=== PATIENT | female | born 1985 | race Caucasian/White ===

== ENCOUNTER 2017-12-05 12:25 | Inpatient (IN) | payer OTHER ==
[2017-12-05 14:10] VITALS: BMI 32.2
[2017-12-05] MEDS ORDERED: ELECTROLYTE-148 SOLN 1,000 ML IV SCH (14:30)
[2017-12-05 15:10] LABS: URINE APPEARANCE SLCLOUDY; URINE BILIRUBIN NEGATIVE (<2.0 mg/dL); URINE COLOR LTYELLOW; URINE GLUCOSE (UA) NEGATIVE (NEGATIVE); URINE KETONE NEGATIVE (NEGATIVE); URINE LEUK ESTERASE NEGATIVE (NEGATIVE); URINE NITRITE NEGATIVE (NEGATIVE); URINE PROTEIN NEGATIVE (NEGATIVE); URINE UROBILINOGEN NEGATIVE mg/dL (0.2-1.0)
[2017-12-05 15:27] LABS: BASO % 0.2 % (0-2.0); EOS % 1.3 % (0-4.5); HEMATOCRIT 36.2 % (32.4-45.2); HEMOGLOBIN 12.4 GM/dL (10.7-15.3); LYMPH % 14.6 % (8-40); MCH 29.9 pg (25.7-33.7); MCHC 34.3 g/dl (32.0-36.0); MEAN CELL VOLUME 87.1 fl (80-96); MEAN PLT VOLUME 9.7 fl (7.5-11.1); MONO % 6.3 % (3.8-10.2); NEUT % 77.6 % (42.8-82.8); PLATELET COUNT 207 K/MM3 (134-434); RBC 4.16 M/mm3 (3.60-5.2); RDW 14.7 % (11.6-15.6); RETICULOCYTES 1.67 % (0.5-1.5); WHITE BLOOD COUNT 9.6 K/mm3 (4.0-10.0)
[2017-12-05 15:42] LABS: INR 0.85 (0.83-1.09)
[2017-12-05 15:45] LABS: ACTIVATED PTT 26.5 SECONDS (25.2-36.5)
[2017-12-05 16:00] LABS: ANION GAP 10 MMOL/L (8-16); BLOOD UREA NITROGEN 11 mg/dL (7-18); CALCIUM 8.7 mg/dL (8.5-10.1); CHLORIDE 108 mmol/L (98-107); CO2 22 mmol/L (21-32); CREATININE 0.5 mg/dL (0.55-1.3); GAMMA GLUTAMYL TRANSPEPTIDASE 5 U/L (5-85); GLUCOSE,RANDOM 103 mg/dL (74-106); POTASSIUM 3.9 mmol/L (3.5-5.1); SGOT/AST 19 U/L (15-37); SGPT/ALT 20 U/L (13-61); SODIUM 139 mmol/L (136-145); URIC ACID 3.5 mg/dL (2.6-7.2)
[2017-12-05] MEDS ORDERED: CITRIC ACID/SODIUM CITRATE 30 ML UNIT-DOSE CUP PO ONE (16:12)
--- NOTE | 2017-12-05 16:23 | HP ---
Past Medical History - Primary Care Physician PCP:: Jay Jay Maldonado - Admission Chief Complaint: 37 weeks, chronic uncontrolled HTN, 3 previous c/s, sterlization History of Present Illness: 32 yo f 1 1 3 , with hx of CHTN on labetalol and ASA , c/o headache, , bp 160/100.162/104,160/103 , protein negative, 3 previous c/s , admitted for repeat c/sand BTL, have had rt ectopic and RT salpingectomy. risks of repeat c/s has discussed with patient History Source: Patient Limitations to Obtaining History: No Limitations - Past Medical History QA INTERNSHIP: Yes: Other (no headache) Cardiovascular: Yes: HTN (denies when non , no meds before . htn only during pregn as per pt) Pulmonary: Yes: Other ( No SOB) Gastrointestinal: Yes: Other (no epigastric pain or vomitting) Reproductive: Yes: Ectopic ...: 5 ...Para: 3 ...Term: 2 ...: 1 ...Spon : 1 ...Induced : 0 ...Multiple Gestation: 0 ...LMP: 03/21/17 ... Weeks Gestation by Dates: 37.0 ...EDC by Dates: 12/26/17 ...EDC by Sono: 12/26/17 - Past Surgical History Past Surgical History: Yes: Appendectomy, Hx Myomectomy: No Hx Transabdominal Cerclage: No - Smoking History Smoking history: Never smoked Have you smoked in the past 12 months: No - Alcohol/Substance Use Hx Alcohol Use: No History of Substance Use: reports: None - Social History Usual Living Arrangement: Yes: Alone, Assisted Living History of Recent Travel: No Home Medications - Allergies Allergies/Adverse Reactions: Allergies Allergy/AdvReac Type Severity Reaction Status Date / Time No Known Allergies Allergy Verified 12/05/17 12:59 - Home Medications Home Medications: Ambulatory Orders Aspirin [Adult Aspirin] 81 mg PO DAILY 12/05/17 Ferrous Sulfate 325 mg PO DAILY 12/05/17 Labetalol HCl [Normodyne -] 200 mg PO BID 12/05/17 Pnv No.95/Ferrous Fum/Folic AC [ Vitamin Tablet] 1 each PO DAILY Review of Systems - Review of Systems Eyes: reports: No Symptoms HENT: reports: No Symptoms Neck: reports: No Symptoms Cardiovascular: reports: No Symptoms Respiratory: reports: No Symptoms Gastrointestinal: reports: No Symptoms Genitourinary: reports: No Symptoms Breasts: reports: No Symptoms Reported Musculoskeletal: reports: No Symptoms Integumentary: reports: No Symptoms Neurological: reports: Headache Endocrine: reports: No Symptoms Hematology/Lymphatic: reports: No Symptoms Psychiatric: reports: No Symptoms Physical Exam - Maternity Vital Signs: Vital Signs Temperature 98.3 F 12/05/17 14:00 Pulse Rate 80 12/05/17 15:30 Respiratory Rate 18 12/05/17 15:30 Blood Pressure 165/92 12/05/17 15:30 O2 Sat by Pulse Oximetry (%) Constitutional: Yes: Well Nourished, No Distress, Calm Eyes: Yes: WNL, Conjunctiva Clear, EOM Intact HENT: Yes: WNL, Atraumatic, Normocephalic Neck: Yes: WNL, Supple, Trachea Midline Cardiovascular: Yes: WNL, Regular Rate and Rhythm Breast(s): Yes: WNL - Abdominal Exam/OB Fundal Height: 38 Number of Fetuses: Single Presentation: Vertex Contractions: No Regularity: Irritability Intensity: Unaware Monitor Mode: External Heart Rate Location: [facility] Category: I Accelerations: Uniform Decelerations: None - Vaginal Exam/OB Vaginal Bleediing: No Speculum Exam: No Dilatation (cm): closed Effacement (%): 0 Amniotic Membrane Status: Intact Presentation: Vertex/Position Station: -3 - Physical Exam Musculoskeletal: Yes: WNL Extremities: Yes: WNL Edema: LLE: 1+, RLE: 1+ Integumentary: Yes: WNL Deep Tendon Reflex Grade: Normal +2 ...Motor Strength: WNL Psychiatric: Yes: WNL - Labs Lab Results: CBC, BMP 12/05/17 14:45 12/05/17 14:45 Hemorrhage Risk Assessment - Risk Factors Medium Risk Factors: Yes: Prior , uterine surgery,or multiple laparotomies Risk Score: 3 Risk Level: High Risk Problem List - Problems (1) with 37 weeks completed gestation Code(s): Z3A.37 - 37 WEEKS GESTATION OF (2) Previous section complicating Code(s): O34.219 - MATERNAL CARE FOR UNSP TYPE SCAR FROM PREVIOUS DEL (3) Chronic hypertension affecting Code(s): O10.919 - UNSP PRE-EXISTING HTN COMP , UNSP TRIMESTER (4) Sterilization Code(s): Z30.2 - ENCOUNTER FOR STERILIZATION Assessment/Plan repeat c/s, btl, monitor Bp , tx with labetalol
[2017-12-05] MEDS ORDERED: morphine SULFATE/Preservative Free 0.5 MG/ML (1cc Syringe) ONE (16:47)
[2017-12-05] MEDS ORDERED: ceFAZolin SODIUM 1 GM VIAL ONE (17:04)
[2017-12-05] MEDS ORDERED: OXYTOCIN 20 UNITS in 0.9% NS 20 UNIT/1,000 ML INFUS.BAG IV ONE ×2 (17:11→19:44)
[2017-12-05] MEDS ORDERED: OXYTOCIN 10 UNITS/ML VIAL ONE (17:12)
[2017-12-05] MEDS ORDERED: BENZOCAINE 20% 57 GM BOTTLE TP PRN (17:57)
[2017-12-05] MEDS ORDERED: BENZOCAINE 28 GM HEMORRHOIDAL OINTMENT PR PRN (17:57)
[2017-12-05] MEDS ORDERED: WITCH HAZEL 50% (TUCKS) 40 PAD/JAR PAD TP PRN (17:57)
[2017-12-05] MEDS ORDERED: METHYLERGONOVINE MALEATE 0.2 MG/1 ML AMP IM PRN (17:57)
[2017-12-05] MEDS ORDERED: diphenhydrAMINE HCL 25 MG CAPSULE (FP) PO PRN (17:57)
[2017-12-05] MEDS ORDERED: IBUPROFEN 600 MG TABLET (FP) PO PRN (17:57)
[2017-12-05] MEDS ORDERED: IBUPROFEN 800 MG/8 ML IJ IVPB PRN (17:57)
[2017-12-05] MEDS ORDERED: oxyCODONE HCL 5 MG TABLET PO PRN (17:57)
[2017-12-05] MEDS ORDERED: ACETAMINOPHEN 1000 MG/100 ML VIAL (NON FORMULARY) IVPB PRN (18:00)
[2017-12-05] MEDS ORDERED: DEXTROSE 5%-LACTATED RINGERS 1,000 ML IV SCH (18:00)
[2017-12-05] MEDS ORDERED: OXYTOCIN 20 UNITS in 0.9% NS 20 UNIT/1,000 ML INFUS.BAG IV SCH (18:00)
[2017-12-05] MEDS ORDERED: ONDANSETRON 4 MG/2 ML VIAL IVPUSH PRN (18:19)
[2017-12-05] MEDS ORDERED: LABETALOL HCL 200 MG TABLET (FP) ONE (18:39)
[2017-12-05] MEDS: LABETALOL HCL 200 MG TABLET (FP) PO PRN (18:40)
[2017-12-06] MEDS ORDERED: DEXTROSE 5%-WATER - 50 ML IVPB ONE ×2 (00:42→08:25)
[2017-12-06] MEDS ORDERED: ceFAZolin SODIUM 1 GM VIAL ONE ×2 (00:42→08:26)
[2017-12-06] MEDS: CEFAZOLIN 1 GM in DEXTROSE 5%-WATER - 50 ML IVPB SCH ×2 (00:50→08:32)
--- NOTE | 2017-12-06 08:08 | OP ---
DATE OF OPERATION: 12/05/2017 PREOPERATIVE DIAGNOSIS: 37 weeks, chronic hypertension uncontrolled, 3 previous sections, request of section and tubal ligation. POSTOPERATIVE DIAGNOSIS: 37 weeks, chronic hypertension uncontrolled, 3 previous sections, request of section and tubal ligation. PROCEDURE: Repeat low segment transverse section, bilateral tubal ligation. SURGEON: Jay Jay Maldonado MD SENIOR QUALITY ASSURANCE SPECIALIST: ABNER Shanks ANESTHESIA: Spinal. ANESTHESIOLOGIST: Roberto Levin MD ESTIMATED BLOOD LOSS: 700 mL. DESCRIPTION OF PROCEDURE: The patient was taken to the operating room under adequate spinal anesthesia. Abdomen and perineum were prepped and draped. Pfannenstiel abdominal skin incision was made over the previous incision. Abdominal wall was cut layer by layer until the peritoneum was exposed and incised. Upon entering the abdominal cavity, there were multiple pelvic omental adhesions. Uterus was adherent to the anterior abdominal wall. These adhesions were lysed, and lower uterine segment was identified. Bladder flap was developed and pushed down. A low transverse uterine incision was made. Incision extended laterally. Amniotic sac was entered. Clear fluid. Head delivered from right occipital position. Nasopharynx was suctioned, and live baby was delivered without any difficulty. Placenta was delivered manually. Uterine cavity was cleaned of all remaining tissue. Uterine incision was closed in 2 layers, the first layer with 0 Biosyn continuous suture, the second layer with 0 Biosyn imbricating the first layer. Then right tube had partial salpingectomy. Fimbriated end was removed. Then the clamp was tied with 0 Biosyn tie. Then the left tube was grasped with Rose clamp. The left tube was doubly tied with 2-0 plain, and a portion of tube was removed and then the was cauterized. No active bleeding was seen. All the lap, pad, sponge, and instruments counts were correct. Peritoneum because of adhesions was not able to be closed. The muscles were brought together with a suture of 0 Biosyn. Fascia was closed with 0 Biosyn continuous suture, subcutaneous fat interrupted suture of 0 Biosyn, and the skin was closed with trent. The patient tolerated the procedure well and left the OR in good condition. Bimal [id number]
[2017-12-06 08:10] LABS: BASO % 0.3 % (0-2.0); EOS % 0.7 % (0-4.5); HEMATOCRIT 33.8 % (32.4-45.2); HEMOGLOBIN 11.4 GM/dL (10.7-15.3); LYMPH % 15.1 % (8-40); MCH 29.6 pg (25.7-33.7); MCHC 33.7 g/dl (32.0-36.0); MEAN CELL VOLUME 87.9 fl (80-96); MEAN PLT VOLUME 9.4 fl (7.5-11.1); NEUT % 76.9 % (42.8-82.8); PLATELET COUNT 157 K/MM3 (134-434); RBC 3.84 M/mm3 (3.60-5.2); WHITE BLOOD COUNT 10.7 K/mm3 (4.0-10.0)
[2017-12-06] MEDS: ENOXAPARIN NA (PORCINE) 40 MG/0.4 ML DISP.SYRIN SQ SCH (09:08)
[2017-12-06] MEDS: LABETALOL HCL 200 MG TABLET (FP) PO PRN (14:27)
--- NOTE | 2017-12-06 14:33 | PN ---
Progress Note, Physician Chief Complaint: s/p c section post op day one. History of Present Illness: under spinal anesthesia with duramorph for post op pain control - Current Medication List Current Medications: Active Medications Acetaminophen (Tylenol -) 650 mg PO Q4H PRN PRN Reason: PAIN LEVEL 6-10 Acetaminophen (Ofirmev Injection -) 1,000 mg IVPB Q6H PRN PRN Reason: PAIN LEVEL 6-10 Last Admin: 12/06/17 01:25 Dose: 1,000 mg Benzocaine (Americaine 20% [place] -) 1 spray TP PRN PRN PRN Reason: Pain - Topical Benzocaine (Americaine Ointment -) 1 applic MD PRN PRN PRN Reason: Pain - Topical Bisacodyl (Dulcolax Suppository -) 10 mg MD PRN PRN PRN Reason: CONSTIPATION Diphenhydramine HCl (Benadryl -) 25 mg PO Q8H PRN PRN Reason: FOR ITCHING Diphenhydramine HCl (Benadryl Injection -) 25 mg IVPUSH Q4H PRN PRN Reason: Pruritis Last Admin: 12/06/17 04:40 Dose: 25 mg Diphtheria/Tetanus/Acell Pertussis (Boostrix -) 0.5 ml IM .ONCE ONE Stop: 12/07/17 10:01 Enoxaparin Sodium (Lovenox -) 40 mg SQ DAILY [facility] Last Admin: 12/06/17 09:08 Dose: 40 mg Parenteral Electrolytes (Plasma-Lyte 148 -) 1,000 mls @ 125 mls/hr IV ASDIR [facility] Last Admin: 12/05/17 13:30 Dose: 125 mls/hr Dextrose/Lactated Ringer's (D5-Lr -) 1,000 mls @ 125 mls/hr IV ASDIR [facility] Oxytocin/Sodium Chloride (Normal Saline+20 Units Oxytocin -) 20 unit in 1,000 mls @ 125 mls/hr IV ASDIR [facility] Last Admin: 12/05/17 19:39 Dose: 125 mls/hr Influenza Virus Vaccine Quadrival (Flulaval Quad [id number]) 60 mcg IM .ONCE ONE Stop: 12/07/17 10:01 Labetalol HCl (Normodyne -) 200 mg PO Q6H PRN PRN Reason: HYPERTENSION Last Admin: 12/06/17 14:27 Dose: 200 mg Methylergonovine Maleate (Methergine Injection -) 0.2 mg IM Q4H PRN PRN Reason: EXCESSIVE BLEEDING Ondansetron HCl (Zofran Injection) 4 mg IVPUSH Q4H PRN PRN Reason: NAUSEA Oxycodone HCl (Roxicodone -) 5 mg PO Q4H PRN PRN Reason: PAIN LEVEL 4 - 6 Oxycodone HCl (Roxicodone -) 10 mg PO Q4H PRN PRN Reason: PAIN LEVEL 7 - 10 Senna/Docusate Sodium (Pericolace -) 2 tablet PO HS PRN PRN Reason: CONSTIPATION Simethicone (Mylicon -) 80 mg PO Q4H PRN PRN Reason: GAS Witch Karissa/Glycerin (Tucks Pads -) 1 pad TP PRN PRN PRN Reason: Pain - Topical - Objective Vital Signs: Vital Signs Temperature 98.3 F 12/06/17 14:15 Pulse Rate 88 12/06/17 14:15 Respiratory Rate 20 12/06/17 14:15 Blood Pressure 134/94 12/06/17 14:15 O2 Sat by Pulse Oximetry (%) 100 12/05/17 21:00 Constitutional: Yes: Well Nourished Cardiovascular: Yes: WNL Respiratory: Yes: WNL Gastrointestinal: Yes: WNL Labs: CBC, BMP 12/06/17 07:00 12/05/17 14:45 INR, PTT INR 0.85 (0.83-1.09) 12/05/17 14:45 Assessment/Plan No adverse effect of anesthetic, pain controlled, no nausea or vomiting, dept of anesthesia will sign off care at this time.
--- NOTE | 2017-12-06 16:53 | PN ---
Progress Note (short form) - Note Progress Note: pod 2 s/p repeat c/s, chronic HTN, no headache Last Vital Signs Temp Pulse Resp BP Pulse Ox 98.3 F 88 20 134/94 100 12/06/17 14:15 12/06/17 14:15 12/06/17 14:15 12/06/17 14:15 12/05/17 21:00 CBC, BMP 12/06/17 07:00 12/05/17 14:45 abdomen soft, no distension , no cva incision dry, clean no calf tenderness no edema impression chronic HTN, on labetalol , bp fairly well controlled plan ambulate, cbc Problem List - Problems (1) with 37 weeks completed gestation Code(s): Z3A.37 - 37 WEEKS GESTATION OF (2) Previous section complicating Code(s): O34.219 - MATERNAL CARE FOR UNSP TYPE SCAR FROM PREVIOUS DEL (3) Chronic hypertension affecting Code(s): O10.919 - UNSP PRE-EXISTING HTN COMP , UNSP TRIMESTER (4) Sterilization Code(s): Z30.2 - ENCOUNTER FOR STERILIZATION
[2017-12-06] MEDS ORDERED: BISACODYL 10 MG SUPP.RECT PR PRN (17:57)
[2017-12-06] MEDS: SIMETHICONE 80 MG TAB.CHEW (FP) PO PRN (21:30)
[2017-12-06] MEDS: ACETAMINOPHEN 325 MG TABLET (FP) PO PRN (21:30)
[2017-12-06] MEDS: oxyCODONE HCL 5 MG TABLET PO PRN (21:32)
[2017-12-07] MEDS: LABETALOL HCL 200 MG TABLET (FP) PO PRN ×3 (01:42→21:01)
[2017-12-07] MEDS: ACETAMINOPHEN 325 MG TABLET (FP) PO PRN ×3 (06:22→21:01)
[2017-12-07] MEDS: SIMETHICONE 80 MG TAB.CHEW (FP) PO PRN ×3 (06:22→21:01)
[2017-12-07] MEDS: oxyCODONE HCL 5 MG TABLET PO PRN ×3 (06:23→21:01)
[2017-12-07] MEDS: ENOXAPARIN NA (PORCINE) 40 MG/0.4 ML DISP.SYRIN SQ SCH (09:09)
[2017-12-07] MEDS ORDERED: FLU VACCINE QUAD 60 MCG/0.5 ML (MDV 18-19) IM ONE (11:15)
[2017-12-07] MEDS ORDERED: DIPHTH,PERTUSS(ACELL),TET 0.5 ML DISP.SYRIN IM ONE (11:15)
[2017-12-07] MEDS ORDERED: SENNOSIDES/DOCUSATE COMBO (SENNA PLUS) TABLET (UD) PO PRN (22:00)
[2017-12-08] MEDS: ACETAMINOPHEN 325 MG TABLET (FP) PO PRN (03:43)
[2017-12-08 08:06] VITALS: BP 142/79; PULSE 86; TEMP 98.1
--- NOTE | 2017-12-08 08:08 | PN ---
Progress Note (short form) - Note Progress Note: pod 3 doing well, no c/o , no headache, no blurred vision, passing gas CBC, BMP 12/06/17 07:00 12/05/17 14:45 Last Vital Signs Temp Pulse Resp BP Pulse Ox 98.6 F 88 18 139/87 100 12/08/17 02:00 12/08/17 02:00 12/08/17 02:00 12/08/17 02:00 12/05/17 21:00 abdomen soft, no distension, no cva ,BS present incision dry, clean , trent intact no excess vaginal bleeding no calf tenderness plan cbc today cont. monitor BP Problem List - Problems (1) with 37 weeks completed gestation Code(s): Z3A.37 - 37 WEEKS GESTATION OF (2) Previous section complicating Code(s): O34.219 - MATERNAL CARE FOR UNSP TYPE SCAR FROM PREVIOUS DEL (3) Chronic hypertension affecting Code(s): O10.919 - UNSP PRE-EXISTING HTN COMP , UNSP TRIMESTER (4) Sterilization Code(s): Z30.2 - ENCOUNTER FOR STERILIZATION
[2017-12-08 08:30] LABS: BASO % 0.3 % (0-2.0); HEMATOCRIT 30.5 % (32.4-45.2); HEMOGLOBIN 10.2 GM/dL (10.7-15.3); LYMPH % 13.4 % (8-40); MCH 29.7 pg (25.7-33.7); MCHC 33.6 g/dl (32.0-36.0); MEAN CELL VOLUME 88.3 fl (80-96); MEAN PLT VOLUME 8.7 fl (7.5-11.1); MONO % 7.6 % (3.8-10.2); NEUT % 76.7 % (42.8-82.8); PLATELET COUNT 173 K/MM3 (134-434); RBC 3.45 M/mm3 (3.60-5.2); RDW 15.3 % (11.6-15.6); WHITE BLOOD COUNT 9.1 K/mm3 (4.0-10.0)
--- NOTE | 2017-12-08 08:53 | DS ---
Physical Exam-INCIDENT HANDLER Vital Signs: Vital Signs Temperature 98.1 F 12/08/17 08:00 Pulse Rate 86 12/08/17 08:00 Respiratory Rate 18 12/08/17 08:00 Blood Pressure 142/79 12/08/17 08:00 O2 Sat by Pulse Oximetry (%) 100 12/05/17 21:00 Constitutional: Yes: Well Nourished, No Distress, Calm Eyes: Yes: WNL, Conjunctiva Clear, EOM Intact HENT: Yes: WNL, Atraumatic, Normocephalic Neck: Yes: WNL, Supple, Trachea Midline Cardiovascular: Yes: WNL, Regular Rate and Rhythm Respiratory: Yes: WNL, Regular, CTA Bilaterally Gastrointestinal: Yes: WNL ...Rectal Exam: Yes: WNL Renal/: Yes: WNL ....Post : Yes: Uterus firm, Uterus non-tender, Slight lochia rubra Breast(s): Yes: WNL Musculoskeletal: Yes: WNL Extremities: Yes: WNL Edema: No Integumentary: Yes: WNL Wound/Incision: Yes: Clean/Dry, Well Approximated, [place] Intact Neurological: Yes: WNL, Alert, Oriented ...Motor Strength: WNL Psychiatric: Yes: WNL, Alert, Oriented Labs: CBC, BMP 12/08/17 08:00 12/05/17 14:45 Delivery - Delivery Section: Repeat, Low Flap Transverse (no complication) Type of Anesthesia: Spinal Episiotomy/Laceration: None EBL (cc): 700 Delivery, Single - Stages of Labor Date of Delivery: 12/05/17 Time of Delivery: 17:14 Time Placenta Delivered: 17:15 Placenta: Yes: Expressed - Condition of Infant Financial Services Intern/Web Architect Present: No Infant Gender: Male Weight: 6 lb 8 oz Position: Right, OT Total Hours ROM (Hrs/Mins): 2min - 1 Minute Total Score: 8 5 Minutes Total Score: 9 - [place] Feeding Plan Initial Plan: Elected not to breastfeed exclusively throughout hospitalization Discharge Summary Reason For Visit: REPEAT Current Active Problems Chronic hypertension affecting (Acute) with 37 weeks completed gestation (Acute) Previous section complicating (Acute) Sterilization (Acute) Procedures: Principal: repeat LST c/s Other Procedures: BTL - Instructions Diet, Activity, Other Instructions: regular diet, follow up [facility] 3 days for trent removal , follow up PCP for HTN this week . if heavy vaginal bleeding, headache, fever call MD Referrals: Jay Jay Maldonado MD [Staff Physician] - - Home Medications Comprehensive Discharge Medication List: Ambulatory Orders Aspirin [Adult Aspirin] 81 mg PO DAILY 12/05/17 Ferrous Sulfate 325 mg PO DAILY 12/05/17 Labetalol HCl [Normodyne -] 200 mg PO BID 12/05/17 Pnv No.95/Ferrous Fum/Folic AC [ Vitamin Tablet] 1 each PO DAILY Acetaminophen [Tylenol] 650 mg PO QID PRN #60 tablet 12/08/17 Ibuprofen [Motrin Ib] 400 mg PO BID PRN #30 tablet 12/08/17 Labetalol HCl [Normodyne -] 200 mg PO BID #60 tablet 12/08/17
[2017-12-08] MEDS: ENOXAPARIN NA (PORCINE) 40 MG/0.4 ML DISP.SYRIN SQ SCH (09:09)
[2017-12-08] MEDS: LABETALOL HCL 200 MG TABLET (FP) PO PRN (10:01)
--- NOTE | 2017-12-12 16:42 | PATH ---
Surgical Pathology Report Patient Name: ISIDRO GARCIA [facility]. Rec. #: [id number] /Age/Gender: 1985 (Age: 32) / F Account: [id number] Location: [facility] OBS/RING STRIKER Taken: 12/05/2017 Received: 12/08/2017 Reported: 12/12/2017 Physicians: Jay Jay Maldonado M.D. Specimen(s) Received A: PLACENTA B: RIGHT PORTION FALLOPIAN TUBE C: LEFT PORTION FALLOPIAN TUBE Clinical History , 37 weeks, PIH Final Diagnosis A. PLACENTA: THIRD TRIMESTER PLACENTA. TRIVASCULAR CORD. MEMBRANES WITH NO DIAGNOSTIC ABNORMALITIES. B. RIGHT PORTION OF FALLOPIAN TUBE: COMPLETE CROSS SECTION OF THE FALLOPIAN TUBE IDENTIFIED. C. LEFT PORTION OF FALLOPIAN TUBE: COMPLETE CROSS SECTION OF THE FALLOPIAN TUBE IDENTIFIED. Electronically Signed Ranjana Randolph M.D. Gross Description A. The specimen is received fresh labeled placenta and is a 414 gram, 15.5 x 13.0 x 3.0 cm. placenta with attached membranes and umbilical cord. The attached membranes are chow, translucent with focal opacities and insert marginally. The umbilical cord measures 30 cm. in length and averages 1.4 cm. in diameter. The cord inserts eccentrically, 4.5 cm. to the nearest margin. No true knots or strictures are identified. Cut surface of the umbilical cord reveals 3 vessels. The surface is estrada-blue with minimal fibrin deposition and appropriate caliber vessels. The maternal surface is red-brown with focal defects. Sectioning reveals red-brown, spongy parenchyma. No lesions are identified. Neck Band Maker sections are submitted in three cassettes as follows: 1- membrane rolls and umbilical cord; 2-3- full thickness sections of placenta. B. Received in formalin labeled "right portion of fallopian tube," is a 2.8 cm in length fimbriated portion of fallopian tube. The outer surface is chow-flowers and smooth. Sectioning reveals an unremarkable lumen. Neck Band Maker sections are submitted in 2 cassettes as follows: 1-fimbria; 2-cross sections of fallopian tube. C. Received in formalin labeled "left portion of fallopian tube," is a 0.6 cm in length portion of fallopian tube. No fimbria are present. The outer surface is chow-flowers and smooth. Sectioning reveals an unremarkable lumen. The specimen is bisected and entirely submitted in one cassette. 12/11/2017 saudi12/11/2017
== END 2017-12-08 12:40 | disposition home or self-care (01) | DRG 540 ==
LOC: JDEL 12:25 → JLDR 13:00 → J3W 20:00
PROVIDERS: ADMIT Obstetrics & Gynecology; ATTEND Obstetrics & Gynecology
PROC: 10D00Z1 Extraction of Products of Conception, Low, Open Approach (ICD-10-PCS; principal; 2017-12-05)
PROC: 0UL70ZZ Occlusion of Bilateral Fallopian Tubes, Open Approach (ICD-10-PCS; 2017-12-05)
DX: O34.211 Maternal care for low transverse scar from previous cesarean delivery (principal); O16.4 Unspecified maternal hypertension, complicating childbirth; Z3A.37 37 weeks gestation of pregnancy; Z37.0 Single live birth
CPT/HCPCS: 36415; 80048; 81003; 82977; 83010; 84450; 84460; 84550; 85025; 85044; 85610; 85730; 86593; 86850; 86900; 86901; 88302-TC; 88307-TC; 90686; 90715; G0008; J0131

== ENCOUNTER 2017-12-10 11:48 | Emergency (ER) | payer OTHER ==
[2017-12-10 12:03] VITALS: TEMP 98.5; BMI 34.2
[2017-12-10] MEDS ORDERED: LABETALOL HCL 5 MG/1 ML (200MG/40ML VIAL) IVPB ONE (12:45)
[2017-12-10] MEDS: LABETALOL HCL 5 MG/1 ML (100MG/20 ML VIAL) IVPUSH ONE ×2 (12:45→12:56)
[2017-12-10] MEDS ORDERED: ACETAMINOPHEN 1000 MG/100 ML VIAL (NON FORMULARY) IVPB ONE (12:49)
--- NOTE | 2017-12-10 12:50 | PDOC ---
History of Present Illness - General History Source: Patient Exam Limitations: No Limitations - History of Present Illness Initial Comments: 12/10/17 15:46 Patient is a 32 year old female with a significant past medical history of HTN, who presents to the ED with complaints of elevated blood pressure that began this morning. Patient reports giving to her child x5 days ago via section and went to [address] [place] [id number] to have her trent removed. As per staff, patient's blood pressure was found to be elevated to 200 s prompting her to be sent to the ED for further evaluation. Patient reports experiencing slight posterior head pain that she says began earlier today as well as minor vaginal spotting. She reports taking her blood pressure medication this morning before going to have her trent removed. Denies chest pain, Sob. Denies nausea, vomiting. Denies contact with sick individuals, out of state travelling. Denies fevers, chills. Denies diarrhea, constipation, Denies dysuria, hematuria. Denies any other symptoms. Allergies: None Social history: Lives with & 2 children. No smoking. No alcohol. No illicit drugs. Surgical history: . PMD: None <Rashaad Jose - Last Filed: 12/10/17 15:46> - General History Source: Patient Exam Limitations: No Limitations <Christa Bhakta - Last Filed: 12/11/17 13:15> - General Chief Complaint: Blood Pressure Problem Stated Complaint: BLOOD PRESSURE PROBLEM Time Seen by Provider: 12/10/17 12:22 Past History <Rashaad Jose - Last Filed: 12/10/17 15:46> - Past Medical History Asthma: No Cancer: No Cardiac Disorders: No COPD: No Diabetes: No HTN: Yes (TAKING MEDICATION) Seizures: No Thyroid Disease: No - Surgical History Abdominal Surgery: Yes Cholecystectomy: Yes (X 4) - Immunization History Immunization Up to Date: Yes - Suicide/Smoking/Psychosocial Hx Smoking History: Never smoked Have you smoked in the past 12 months: No Information on smoking cessation initiated: No Hx Alcohol Use: No Drug/Substance Use Hx: No Substance Use Type: None Hx Substance Use Treatment: No <Christa Bhakta - Last Filed: 12/11/17 13:15> - Past Medical History Allergies/Adverse Reactions: Allergies Allergy/AdvReac Type Severity Reaction Status Date / Time No Known Allergies Allergy Verified 12/10/17 12:03 Home Medications: Ambulatory Orders Aspirin [Adult Aspirin] 81 mg PO DAILY 12/05/17 Labetalol HCl [Normodyne -] 200 mg PO BID 12/05/17 Labetalol HCl 300 mg PO BID #60 tablet 12/10/17 Review of Systems - Review of Systems Able to Perform ROS?: Yes Comments:: 12/10/17 15:46 GENERAL/CONSTITUTIONAL: No: fever, chills, weakness, loss of appetite. HEAD, EYES, EARS, NOSE AND THROAT: +Posterior head pain. No: change in vision, ear pain, discharge, sore throat, throat swelling. CARDIOVASCULAR: No: chest pain, lightheadedness, palpitations, syncope RESPIRATORY: No: cough, shortness of breath, wheezing, hemoptysis, stridor. GASTROINTESTINAL: No: nausea, vomiting, abdominal cramping, diarrhea, rectal bleeding, constipation. GENITOURINARY: No: dysuria, hematuria, frequency, urgency, flank pain. MUSCULOSKELETAL: No: back pain, neck pain, joint pain, muscle swelling or pain SKIN: No: lesions, pallor, rash or easy bruising. NEUROLOGIC: No: headache, vertigo, paresthesias, weakness ENDOCRINE: No: unexplained weight gain or loss HEMATOLOGIC/LYMPHATIC: No: anemia, easy bleeding, swelling nodes <Rashaad Jose - Last Filed: 12/10/17 15:46> *Physical Exam - Vital Signs Last Vital Signs Temp Pulse Resp BP Pulse Ox 98.5 F 81 20 156/98 99 12/10/17 11:59 12/10/17 14:28 12/10/17 14:28 12/10/17 14:28 12/10/17 14:28 - Physical Exam Comments: 12/10/17 15:46 GENERAL: The patient is in no acute distress. HEAD: Normal with no signs of trauma. EYES: PERRLA, EOMI, sclera anicteric, conjunctiva clear. ENT: Ears normal, nares patent, oropharynx clear without exudates. Moist mucous membranes. NECK: Normal range of motion, supple without lymphadenopathy, JVD, or masses. LUNGS: Breath sounds equal, clear to auscultation bilaterally. No wheezes, and no crackles. HEART:Regular rate and rhythm, normal S1 and S2 without murmur, rub or gallop. ABDOMEN: Soft, nontender, normoactive bowel sounds. No guarding, no rebound. EXTREMITIES: Normal range of motion, no edema. No clubbing or cyanosis. No erythema, or tenderness. NEUROLOGICAL: Cranial nerves II through XII grossly intact. Normal speech. No focal neurological deficits. MUSCULOSKELETAL: Back nontender to palpation, no CVA tenderness SKIN: Warm, Dry, normal turgor, no rashes or lesions noted. <Rashaad Jose - Last Filed: 12/10/17 15:46> - Vital Signs Last Vital Signs Temp Pulse Resp BP Pulse Ox 98.5 F 92 H 18 208/118 H 100 12/10/17 11:59 12/10/17 11:59 12/10/17 11:59 12/10/17 11:59 12/10/17 11:59 <Christa Bhakta - Last Filed: 12/11/17 13:15> ED Treatment Course - LABORATORY CBC & Chemistry Diagram: 12/10/17 12:30 12/10/17 12:30 - ADDITIONAL ORDERS Additional order review: Laboratory Results 12/10/17 12/10/17 12/10/17 14:39 12:45 12:30 PT with INR 10.90 INR 0.92 Sodium 141 Potassium 3.9 Chloride 109 H Carbon Dioxide 25 Anion Gap 6 L BUN 12 Creatinine 0.6 Creat Clearance w eGFR > 60 Random Glucose 86 Uric Acid 3.8 Calcium 8.8 Total Bilirubin 0.3 AST 58 H ALT 87 H Alkaline Phosphatase 101 LD Total 472 H Total Protein 6.4 Albumin 2.7 L Urine Color Straw Urine Appearance Clear Urine pH 7.0 Ur Specific [place] 1.010 Urine Protein Negative Urine Glucose (UA) Negative Urine Ketones Negative Urine Blood 3+ H Urine Nitrite Negative Urine Bilirubin Negative Urine Urobilinogen Negative Ur Leukocyte Esterase Trace 12/10/17 12:30 RBC 3.85 MCV 88.3 MCHC 33.2 RDW 15.2 MPV 8.4 Neutrophils % 78.7 Lymphocytes % 11.3 Monocytes % 6.8 Eosinophils % 2.6 Basophils % 0.6 - Medications Given in the ED: ED Medications Discontinued Medications Generic Name Dose Route Start Last Admin Trade Name Freq PRN Reason Stop Dose Admin Acetaminophen 1,000 mg 12/10/17 12:49 12/10/17 14:00 Ofirmev Injection - IVPB 10/10/18 12:50 1,000 mg ONCE ONE Administration Labetalol HCl 20 mg 12/10/17 12:23 12/10/17 12:56 Normodyne Injection - IVPUSH 12/10/17 12:24 Not Given ONCE ONE Labetalol HCl 10 mg 12/10/17 12:52 12/10/17 12:56 Normodyne Injection - IVPUSH 12/10/17 12:53 10 mg ONCE ONE Administration Labetalol HCl 10 mg 12/10/17 13:43 12/10/17 13:58 Normodyne Injection - IVPUSH 12/10/17 13:44 10 mg ONCE ONE Administration <Rashaad Jose - Last Filed: 12/10/17 15:46> - LABORATORY CBC & Chemistry Diagram: 12/10/17 12:30 12/10/17 12:30 - Medications Given in the ED: ED Medications Discontinued Medications Generic Name Dose Route Start Last Admin Trade Name Freq PRN Reason Stop Dose Admin Labetalol HCl 20 mg 12/10/17 12:23 12/10/17 12:45 Normodyne Injection - IVPUSH 12/10/17 12:24 20 mg ONCE ONE Administration <Christa Bhakta - Last Filed: 12/11/17 13:15> Medical Decision Making - Medical Decision Making 12/10/17 12:49 Mrs. Mccray is a 32-year-old female who was referred from clinic for elevated blood pressure. She is 5 days status post . She has a history of associated hypertension, was previously taking labetalol 200 twice a day. Patient has taken this medication this morning. Patient's blood pressure noted to be 180s over 100 in the clinic. At triage systolic blood pressure 200. Patient has a mild occipital headache. She denies visual changes. She denies neck pain, nausea, vomiting. She denies chest pain or abdominal pain. She denies shortness of breath. An order for: Labetalol 20 mg IV. Patient is placed on a youth nutritional monitor. Will also give Tylenol IV for headache. Will consider initiating hydralazine. Will contact OB 12/10/17 16:26 12/10/17 18:18 Laboratory Tests 12/10/17 12/10/17 12:30 12:30 WBC 8.1 Hgb 11.3 Hct 34.0 Plt Count 255 D Sodium 141 Potassium 3.9 Chloride 109 H Carbon Dioxide 25 BUN 12 Creatinine 0.6 Random Glucose 86 AST 58 H ALT 87 H Alkaline Phosphatase 101 LD Total 472 H Total Protein 6.4 Albumin 2.7 L Case reviewed with Dr Rizvi Given no proteinuria, not pre ecclampsia Pt lft bump may be related to ?pain medications Pt BP noted to be elevated prior to discharge Pt given an additional dose of Labetolol 10mg IV and Labetolol 100mg po Pt has no headache, no visual changes, no chest pain, no palpitations Will discharge to home I have repeated this patient's vital signs prior to discharge Repeat BP: 154/98 Pt asked to return to the ER for re evaluation tomorrow morning Pt has an appointment for Friday at 9am Clinical Impression: hypertension (which was associated with ) <Christa Bhakta - Last Filed: 12/11/17 13:15> *DC/Admit/Observation/Transfer - Attestations Scribe Attestion: 12/10/17 15:46 Documentation prepared by Rashaad Jose, acting as biomedical engineering professor for Christa Bhakta MD. <Rashaad Jose - Last Filed: 12/10/17 15:46> - Discharge Dispostion Decision to Admit order: No <Christa Bhakta - Last Filed: 12/11/17 13:15> Diagnosis at time of Disposition: Chronic hypertension affecting - Discharge Dispostion Disposition: HOME Condition at time of disposition: Stable - Prescriptions Prescriptions: Labetalol HCl 300 mg PO BID #60 tablet - Patient Instructions Printed Discharge Instructions: DI for High Blood Pressure Additional Instructions: Ms Mccray Winnie por venir a la brandon de emergencias hoy Jacquelyn laboratorios sugieren que no tiene preeclampsia Por favor contine monitoreando quintana presin arterial en casa Si estn elevados, no dude en volver a la brandon de emergencias para juan daniel nueva evaluacin. Por favor, CAMBIE [place] DOSIFICACIN DE MEDICACIN DE LABETOLOL AHORA BRAYAN LABETOLOL 300 MG EN LA MAANA Y EN LA NOCHE Por favor, mantente lo ms hidratado posible. SI TIENE UN DOLOR DE [place], VISIN DE BLURRY o PUNTOS ANORMALES EN [place] ÁNGEL VISUAL, DEBE VOLVER A LA ER PARA RE EVALUAR Thank you for coming in to the ER today Your labs suggest that you do not have pre-ecclampsia Please continue to monitor your blood pressures at home If they are elevated, please feel free to come back to the ER for re evaluation Please CHANGE YOUR LABETOLOL MEDICATION DOSING YOU WILL NOW TAKE LABETOLOL 300 MG IN THE MORNING AND IN THE EVENING Please stay as hydrated as possible IF YOU HAVE A HEADACHE, BLURRY VISION or ABNORMAL SPOTS IN YOUR VISUAL FIELD YOU MUST COME BACK TO THE ER FOR RE EVALUATION Print Language: [place]
[2017-12-10 12:51] LABS: BASO % 0.6 % (0-2.0); EOS % 2.6 % (0-4.5); HEMOGLOBIN 11.3 GM/dL (10.7-15.3); LYMPH % 11.3 % (8-40); MCH 29.3 pg (25.7-33.7); MCHC 33.2 g/dl (32.0-36.0); MEAN CELL VOLUME 88.3 fl (80-96); MEAN PLT VOLUME 8.4 fl (7.5-11.1); MONO % 6.8 % (3.8-10.2); NEUT % 78.7 % (42.8-82.8); PLATELET COUNT 255 K/MM3 (134-434); RBC 3.85 M/mm3 (3.60-5.2); RDW 15.2 % (11.6-15.6); WHITE BLOOD COUNT 8.1 K/mm3 (4.0-10.0)
[2017-12-10] MEDS ORDERED: LABETALOL HCL 5 MG/1 ML (100MG/20 ML VIAL) IVPUSH ONE ×3 (12:52→17:17)
[2017-12-10 13:38] LABS: ALBUMIN 2.7 g/dl (3.4-5.0); ALK PHOS 101 U/L (45-117); ANION GAP 6 MMOL/L (8-16); BILIRUBIN,TOTAL 0.3 mg/dL (0.2-1); BLOOD UREA NITROGEN 12 mg/dL (7-18); CALCIUM 8.8 mg/dL (8.5-10.1); CHLORIDE 109 mmol/L (98-107); CO2 25 mmol/L (21-32); CREATININE 0.6 mg/dL (0.55-1.3); GLUCOSE,RANDOM 86 mg/dL (74-106); POTASSIUM 3.9 mmol/L (3.5-5.1); SGOT/AST 58 U/L (15-37); SGPT/ALT 87 U/L (13-61); SODIUM 141 mmol/L (136-145); TOT PROT 6.4 g/dl (6.4-8.2)
[2017-12-10] MEDS ORDERED: ACETAMINOPHEN INJECTION 100 ML IVPB ONE (13:59)
[2017-12-10 14:21] LABS: INR 0.92 (0.83-1.09); PROTHROMBIN TIME (PATIENT) 10.9 SEC (9.7-13.0)
[2017-12-10 14:44] LABS: LDH 472 U/L (84-246); URIC ACID 3.8 mg/dL (2.6-7.2)
[2017-12-10 14:55] LABS: URINE APPEARANCE CLEAR; URINE BILIRUBIN NEGATIVE (<2.0 mg/dL); URINE COLOR STRAW; URINE GLUCOSE (UA) NEGATIVE (NEGATIVE); URINE KETONE NEGATIVE (NEGATIVE); URINE LEUK ESTERASE TRACE (NEGATIVE); URINE NITRITE NEGATIVE (NEGATIVE); URINE PROTEIN NEGATIVE (NEGATIVE); URINE UROBILINOGEN NEGATIVE mg/dL (0.2-1.0)
[2017-12-10 17:00] LABS: EPI CELLS RARE /HPF (FEW); URINE MUCUS RARE
[2017-12-10] MEDS ORDERED: LABETALOL HCL 100 MG TABLET (FP) PO ONE (17:17)
[2017-12-10 18:05] VITALS: BP 164/78; PULSE 85
== END 2017-12-10 18:52 | disposition home or self-care (01) ==
LOC: JER 11:48
PROC: 3E033NZ Introduction of Analgesics, Hypnotics, Sedatives into Peripheral Vein, Percutaneous Approach (ICD-10-PCS; principal; 2017-12-10)
PROC: 3E033GC Introduction of Other Therapeutic Substance into Peripheral Vein, Percutaneous Approach (ICD-10-PCS; 2017-12-10)
DX: O16.5 Unspecified maternal hypertension, complicating the puerperium (principal)
CPT/HCPCS: 36415; 80053; 81003; 81015; 83615; 84550; 85025; 85610; 86850; 86900; 86901; 87086; 99282-25; J0131

== ENCOUNTER 2017-12-30 16:51 | Emergency (ER) | payer OTHER ==
[2017-12-30 17:06] VITALS: TEMP 98.5; BMI 28.7
--- NOTE | 2017-12-30 17:06 | PDOC ---
Rapid Medical Evaluation Time Seen by Provider: 12/30/17 17:01 Medical Evaluation: Allergies Allergy/AdvReac Type Severity Reaction Status Date / Time No Known Allergies Allergy Verified 12/30/17 17:01 12/30/17 17:01 Pt presents to the ED for right sided facial droop for one week. S/p C section on 12/05/17. Hx of HTN and preeclampsia Exam: Right sided facial droop, unable to raise eyebrow, close eye completely. BP 221/138 Orders: Labs, IV, CT Pt to proceed to ED for further evaluation Discharge Disposition - Diagnosis Facial droop - Referrals - Patient Instructions - Post Discharge Activity
[2017-12-30 17:26] LABS: BASO % 0.9 % (0-2.0); HEMATOCRIT 43.2 % (32.4-45.2); HEMOGLOBIN 14.6 GM/dL (10.7-15.3); LYMPH % 23.4 % (8-40); MCHC 33.9 g/dl (32.0-36.0); MEAN CELL VOLUME 85.6 fl (80-96); MEAN PLT VOLUME 8.4 fl (7.5-11.1); NEUT % 63.7 % (42.8-82.8); PLATELET COUNT 252 K/MM3 (134-434); RBC 5.05 M/mm3 (3.60-5.2); RDW 14.5 % (11.6-15.6); WHITE BLOOD COUNT 7.2 K/mm3 (4.0-10.0)
[2017-12-30 17:42] LABS: INR 0.96 (0.83-1.09); PROTHROMBIN TIME (PATIENT) 11.3 SEC (9.7-13.0)
[2017-12-30] MEDS ORDERED: SODIUM CHLORIDE 1,000 ML IV STA (17:59)
[2017-12-30] MEDS ORDERED: LABETALOL HCL 5 MG/1 ML (100MG/20 ML VIAL) IVPUSH ONE (17:59)
[2017-12-30] MEDS ORDERED: ACETAMINOPHEN 1000 MG/100 ML VIAL (NON FORMULARY) IVPB ONE (17:59)
[2017-12-30 18:00] LABS: ALBUMIN 4.7 g/dl (3.4-5.0); ALK PHOS 100 U/L (45-117); ANION GAP 10 MMOL/L (8-16); BILIRUBIN,TOTAL 0.4 mg/dL (0.2-1); BLOOD UREA NITROGEN 11 mg/dL (7-18); CHLORIDE 106 mmol/L (98-107); CO2 25 mmol/L (21-32); CREATININE 0.6 mg/dL (0.55-1.3); GLUCOSE,RANDOM 81 mg/dL (74-106); POTASSIUM 3.6 mmol/L (3.5-5.1); SGOT/AST 45 U/L (15-37); SGPT/ALT 123 U/L (13-61); SODIUM 141 mmol/L (136-145); TOT PROT 8.4 g/dl (6.4-8.2)
[2017-12-30] MEDS ORDERED: LABETALOL HCL 5 MG/1 ML (200MG/40ML VIAL) IVPB ONE (18:00)
[2017-12-30] MEDS ORDERED: predniSONE 20 MG TABLET (UD) PO ONE (18:02)
[2017-12-30] MEDS ORDERED: valACYclovir HCL 1000 MG TABLET PO ONE (18:06)
[2017-12-30 18:13] LABS: URINE APPEARANCE CLEAR; URINE BILIRUBIN NEGATIVE (<2.0 mg/dL); URINE COLOR STRAW; URINE GLUCOSE (UA) NEGATIVE (NEGATIVE); URINE KETONE NEGATIVE (NEGATIVE); URINE LEUK ESTERASE 2+ (NEGATIVE); URINE NITRITE NEGATIVE (NEGATIVE); URINE PROTEIN NEGATIVE (NEGATIVE); URINE UROBILINOGEN NEGATIVE mg/dL (0.2-1.0)
[2017-12-30] MEDS ORDERED: valACYclovir HCL 500 MG TABLET (FP) ONE (18:15)
[2017-12-30] MEDS ORDERED: ACETAMINOPHEN INJECTION 100 ML IVPB ONE (18:15)
[2017-12-30] MEDS ORDERED: predniSONE 20 MG TABLET (UD) ONE (18:15)
[2017-12-30 18:18] LABS: EPI CELLS RARE /HPF (FEW); URINE MUCUS RARE
--- NOTE | 2017-12-30 18:21 | PDOC ---
Attending Attestation - HPI HPI: 12/30/17 18:29 Patient is a 32-year-old female with a significant past medical history of recently diagnosed HTN (on labetalol) and preeclampsia, who presents to the ED with complaints of 1 week of right-sided facial droop. Patient initially reports experiencing decreased sensation and pain to the right side of her face. Her symptoms progressively worsened to the point that she was unable to wrinkle the right side of her forehead or close her right eye. She denies experiencing these symptoms in the past. Patient s/p on Tuesday 12/05. BP in the ED noted to be 221/138. She denies any recent travel or recent illnesses. Allergies: NKA Social history: Lives with & 2 children. No smoking. No alcohol. No illicit drugs. Surgical history: . PMD: None <Kelsea Rich - Last Filed: 12/30/17 18:54> - Resident Resident Name: Van Kapoor - ED Attending Attestation I have performed the following: I have examined & evaluated the patient, The case was reviewed & discussed with the resident, I agree w/resident's findings & plan, Exceptions are as noted - Physicial Exam PE: 12/30/17 18:21 NEURO: CN II-XII intact 5/5 strength upper and lower extremities. No pronator drift. Normal speech Right facial droop. Unable to wrinkle forehead. Unable to fully close eyes. - Medical Decision Making 12/30/17 18:04 A portion of this note was documented by scribe services under my direction. I have reviewed the details of the note, within reason, and agree with the documentation with the following case summary and management plan written by me. Patient treated in the ED. Nursing notes are reviewed and incorporated into the medical decision-making. Vital signs reviewed. Peripheral IV access obtained by the nurse, laboratory studies are drawn and sent, reviewed and interpreted by myself. Vital Signs Temp Pulse Resp BP Pulse Ox 98.5 F 89 18 221/138 H 100 12/30/17 17:01 12/30/17 17:01 12/30/17 17:01 12/30/17 17:01 12/30/17 17:01 32-year-old female patient with no medical history presents with right facial droop for one week. Patient started noticing some decreased sensation and pain along the right side the face. Started progressing until she is unable to wrinkle her right forehead and I will close her right eye. Denies any chest pain or short of breath. Denies any other neurological deficits in the upper or lower extremities. Patient stated symptoms persisted and finally came into the ER today. First-time episode. Denies recent illnesses. Denies recent travels. Patient has been recently diagnosed with hypertension after giving approximate 1 month ago. She's been placed on labetalol daily which she's been taken. Patient's CAT scan demonstrates no acute findings. 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 We'll initiate prednisone and valacyclovir. We'll draw Lyme titers. We'll attempt control the blood pressure. However, I do not suspect clinically that the patient had a stroke. We'll try to control the blood pressure and treat Matute's palsy. We'll also need to instruct the patient on how to take the eyes closed when going to sleep and using artificial tears. We'll have her referred to an parole or probation officer and neurologist. If the blood pressures uncontrolled, we'll need to consider admitting the patient to the hospital. 12/30/17 18:55 CBC, BMP 12/30/17 17:22 12/30/17 17:22 CMP Sodium 141 mmol/L (136-145) 12/30/17 17:22 Potassium 3.6 mmol/L (3.5-5.1) 12/30/17 17:22 Chloride 106 mmol/L (98-107) 12/30/17 17:22 Carbon Dioxide 25 mmol/L (21-32) 12/30/17 17:22 Anion Gap 10 MMOL/L (8-16) 12/30/17 17:22 BUN 11 mg/dL (7-18) 12/30/17 17:22 Creatinine 0.6 mg/dL (0.55-1.3) 12/30/17 17:22 Creat Clearance w eGFR > 60 (>60) 12/30/17 17:22 Random Glucose 81 mg/dL (74-106) 12/30/17 17:22 Calcium 9.0 mg/dL (8.5-10.1) 12/30/17 17:22 Total Bilirubin 0.4 mg/dL (0.2-1) 12/30/17 17:22 AST 45 U/L (15-37) H 12/30/17 17:22 ALT 123 U/L (13-61) H 12/30/17 17:22 Alkaline Phosphatase 100 U/L (45-117) 12/30/17 17:22 Creatine Kinase 109 IU/L (26-192) 12/30/17 17:22 Troponin I < 0.02 ng/ml (0.00-0.05) 12/30/17 17:22 Total Protein 8.4 g/dl (6.4-8.2) H 12/30/17 17:22 Albumin 4.7 g/dl (3.4-5.0) 12/30/17 17:22 Repeat BP after labetalol 150s/90s. The patient's head CT is negative. UA with no protein. LFts slightly elevated but pt has no abdominal pain. I feel comfortable with having the patient follow up with a PMD in regards to BP , which I suspect is essential hypertension. However, we will set up an appointment with her to see the IM clinic tomorrow or the following day. I suspect she has matute's palsy and not a stroke. Will give strict return precautions for chest pain, SOB, worsening headache. 12/30/17 19:02 UA with 7WBC, but no dysuria. Will not treat. Will grow urine culture. <Edy Ramirez - Last Filed: 12/30/17 19:03> Heart Score/ECG Review #1 ECG reviewed & interpreted by me at: 17:35 12/30/17 18:24 NSR 76, no std/garcia, TWI III, no std/garcia, QTC 438 msec <Edy Ramirez - Last Filed: 12/30/17 19:03> NIH Stroke Scale - Last Known Well Date/Time & Onset Date Last Known Well: 12/23/17 - Initial Evaluation Level of consciousness: Alert Ask patient the month and their age: Answers both correctly Ask patient to open & close eyes; make fist and let go: Obeys both correctly Best gaze (horizontal eye movement): Normal Visual field testing: No visual field loss Facial paresis (Show teeth/raise eyebrows/close eyes tight): Partial paralysis ( total or near paralysis of lower face) Motor Function: Left Arm: Normal Motor Function: Right Arm: Normal (extends arm 90 (or 45) degrees for 10 seconds without drift Motor Function: Left Leg: Normal (extends leg 30 degrees for 5 seconds without drift) Motor Function: Right Leg: Normal (extends leg 30 degrees for 5 seconds without drift) Limb Ataxia: No ataxia Sensory(Use pinprick test arms,legs,trunk,face/side to side): Mild to moderate decrease in sensation Best language (Describe picture, name items, read sentences): No Aphasia Dysarthria (read several words): Normal articulation Extinction and Inattention: No abnormality - Total Score NIH Stroke Scale Score: 3 <Edy Ramirez - Last Filed: 12/30/17 19:03> Attestations - Attestations 12/30/17 18:30 Documentation prepared by Kelsea Rich, acting as director of medical education for Edy Ramirez MD. <Kelsea Rich - Last Filed: 12/30/17 18:54>
--- NOTE | 2017-12-30 18:30 | PDOC ---
History of Present Illness - General Chief Complaint: Facial Droop Stated Complaint: FACIAL PARALYSIS & PAIN Time Seen by Provider: 12/30/17 17:01 History Source: Patient Exam Limitations: No Limitations - History of Present Illness Initial Comments: 12/30/17 18:22 32 yo female status post C section 25 days and history of hypertension presents to the ED with right sided facial droop for 7 days and elevated BP in the 200s. Patient seen in ED Dec 10 for elevated blood pressure and right sided SHAHID (no significant neurological findings, pt sent home with PMD follow up and given 100mg increase of labetalol but states she has been taking 400 mg since the since she only has 200mg tablets). Patient denies recent illness or recent travel. Admits to R sided SHAHID and face pain but Denies N/V/F/C, one sided weakness or sensory deficit of ext, incontinence or changes in vision. Past History - Past Medical History Allergies/Adverse Reactions: Allergies Allergy/AdvReac Type Severity Reaction Status Date / Time No Known Allergies Allergy Verified 12/30/17 17:01 Home Medications: Ambulatory Orders Labetalol HCl [Normodyne -] 400 mg PO BID 12/30/17 Valacyclovir HCl [Valtrex] 1,000 mg PO TID 7 Days #21 tablet 12/30/17 predniSONE [Deltasone -] 50 mg PO DAILY #7 tablet 12/30/17 Asthma: No Cancer: No Cardiac Disorders: No COPD: No Diabetes: No HTN: Yes (TAKING MEDICATION) Seizures: No Thyroid Disease: No - Surgical History Abdominal Surgery: Yes Cholecystectomy: Yes - Reproductive History (#): 4 Para: 4 - Immunization History Immunization Up to Date: Yes - Suicide/Smoking/Psychosocial Hx Smoking History: Never smoked Have you smoked in the past 12 months: No Hx Alcohol Use: No Drug/Substance Use Hx: No Substance Use Type: None Hx Substance Use Treatment: No Review of Systems - Review of Systems Constitutional: No: Chills, Fever HEENTM: No: Double Vision Respiratory: No: Shortness of Breath Cardiac (ROS): No: Chest Pain ABD/GI: No: Constipated, Diarrhea, Nausea, Vomiting Musculoskeletal: No: Back Pain, Muscle Weakness Neurological: Yes: Headache (right headache and face pain), Numbness (left index finger). No: Paresthesia, Weakness, Dizziness *Physical Exam - Vital Signs Last Vital Signs Temp Pulse Resp BP Pulse Ox 98.5 F 80 16 173/99 H 99 12/30/17 17:01 12/30/17 18:00 12/30/17 18:00 12/30/17 18:00 12/30/17 18:00 - Physical Exam General Appearance: Yes: Nourished, Appropriately Dressed. No: Apparent Distress HEENT: positive: EOMI, SAMIR Respiratory/Chest: positive: Lungs Clear, Normal Breath Sounds. negative: Crackles, Wheezing Cardiovascular: positive: Regular Rhythm, Regular Rate, S1, S2. negative: Edema , JVD, Murmur Vascular Pulses: Dorsalis-Pedis (R): 4+, Doralis-Pedis (L): 4+ Gastrointestinal/Abdominal: positive: Normal Bowel Sounds. negative: Pulsatile Mass, Protuberent, Distended, Guarding, Rebound, Tenderness Extremity: positive: Normal Capillary Refill Neurologic: positive: dental claims processor II-XII NML intact, Fully Oriented, Alert, Normal Mood/ Affect, Normal Response, Motor Strength 5/5, Facial Droop (R sided), Sensory Deficit (right side face numb), Finger to Nose (normal), Other (wrinkles left forehead not the right. consistent with Matute's Palsy ). negative: Confused, Disoriented ED Treatment Course - LABORATORY CBC & Chemistry Diagram: 12/30/17 17:22 12/30/17 17:22 - ADDITIONAL ORDERS Additional order review: Laboratory Results 12/30/17 12/30/17 12/30/17 17:45 17:22 17:22 WBC RBC Hgb Hct MCV MCH MCHC RDW Plt Count MPV Absolute Neuts (auto) Neutrophils % Lymphocytes % Monocytes % Eosinophils % Basophils % Nucleated RBC % PT with INR 11.30 INR 0.96 Sodium Potassium Chloride Carbon Dioxide Anion Gap BUN Creatinine Creat Clearance w eGFR Random Glucose Calcium Total Bilirubin AST ALT Alkaline Phosphatase Creatine Kinase 109 Troponin I < 0.02 Total Protein Albumin Urine Color Straw Urine Appearance Clear Urine pH 6.0 Ur Specific [place] 1.011 Urine Protein Negative Urine Glucose (UA) Negative Urine Ketones Negative Urine Blood Negative Urine Nitrite Negative Urine Bilirubin Negative Urine Urobilinogen Negative Ur Leukocyte Esterase 2+ H Urine WBC (Auto) 7 Urine RBC (Auto) None Ur Epithelial Cells Rare Urine Mucus Rare 12/30/17 12/30/17 17:22 17:22 WBC 7.2 RBC 5.05 Hgb 14.6 Hct 43.2 D MCV 85.6 MCH 29.0 MCHC 33.9 RDW 14.5 Plt Count 252 MPV 8.4 Absolute Neuts (auto) 4.6 Neutrophils % 63.7 Lymphocytes % 23.4 D Monocytes % 7.0 Eosinophils % 5.0 H D Basophils % 0.9 Nucleated RBC % 0 PT with INR INR Sodium 141 Potassium 3.6 Chloride 106 Carbon Dioxide 25 Anion Gap 10 BUN 11 Creatinine 0.6 Creat Clearance w eGFR > 60 Random Glucose 81 Calcium 9.0 Total Bilirubin 0.4 AST 45 H ALT 123 H Alkaline Phosphatase 100 Creatine Kinase Troponin I Total Protein 8.4 H Albumin 4.7 Urine Color Urine Appearance Urine pH Ur Specific [place] Urine Protein Urine Glucose (UA) Urine Ketones Urine Blood Urine Nitrite Urine Bilirubin Urine Urobilinogen Ur Leukocyte Esterase Urine WBC (Auto) Urine RBC (Auto) Ur Epithelial Cells Urine Mucus 12/30/17 17:22 RBC 5.05 MCV 85.6 MCHC 33.9 RDW 14.5 MPV 8.4 Neutrophils % 63.7 Lymphocytes % 23.4 D Monocytes % 7.0 Eosinophils % 5.0 H D Basophils % 0.9 - Medications Given in the ED: ED Medications Discontinued Medications Generic Name Dose Route Start Last Admin Trade Name Freq PRN Reason Stop Dose Admin Labetalol HCl 10 mg 12/30/17 17:59 12/30/17 18:00 Normodyne Injection - IVPUSH 12/30/17 18:00 10 mg ONCE ONE Administration Medical Decision Making - Medical Decision Making 12/30/17 19:24 32 yo female presents with right sided facial droop and systolic BP in the 200s. Vitals: BP 221/170s DDX: stroke vs brain lesion/mass vs bells palsy CT non con Head negative for acute bleed or path Lyme titers orders UTI found but asymptomatic so no treatment AST and ALT found to be elevated and PCP should trend in order to ensure no end organ damage due to labile BP BP improve during stay to 150s PE noted in PE section consistent with bells palsy Treated with prednisone and valacyclovir for 1 week and follow up with Neuro and Optho Follow up with PCP Dr. Roscoe Starkey Jan 01 at 2 pm. Told patient to discuss blood pressure control and gave strict return precautions *DC/Admit/Observation/Transfer Diagnosis at time of Disposition: Facial droop - Discharge Dispostion Disposition: HOME Condition at time of disposition: Stable Decision to Admit order: No - Prescriptions Prescriptions: predniSONE [Deltasone -] 50 mg PO DAILY #7 tablet Valacyclovir HCl [Valtrex] 1,000 mg PO TID 7 Days #21 tablet - Referrals Referrals: Roscoe Starkey MD [Primary Care Provider] - Vincent Cueto MD [Staff Physician] - Mac Guadalupe MD [Staff Physician] - - Patient Instructions Printed Discharge Instructions: DI for Matute's Palsy Additional Instructions: Please return to the Emergency Room for new or worsening symptoms including but not limited to: numbness or weakness on one side of your body, incontinence, changes in vision or severe headaches. You must follow up and keep your appointment with Dr. Starkey January 01 at 2 pm for continued blood pressure monitoring. Also discuss your visit today and provide blood work and urine results. Please make appointment with the Neurologist and Staffing Analyst we referred you to within the next 2 days. Please take the medications Prednisone and Valacyclovir as prescribed to you. Take over the counter Tylenol for your headache Thank you - Post Discharge Activity
[2017-12-30 19:38] VITALS: BP 151/97; PULSE 73
--- NOTE | 2017-12-31 12:02 | EKG ---
Test Reason : Blood Pressure : / mmHG Vent. Rate : 076 BPM Atrial Rate : 076 BPM P-R Int : 174 ms QRS Dur : 080 ms QT Int : 390 ms P-R-T Axes : 053 077 020 degrees QTc Int : 438 ms NORMAL SINUS RHYTHM POSSIBLE LEFT ATRIAL ENLARGEMENT BORDERLINE ECG WHEN COMPARED WITH ECG OF 22-MAY-2017 18:21, NO SIGNIFICANT CHANGE WAS FOUND Confirmed by BE KARIMI MD ([id number]) on 12/31/2017 12:02:03 PM Referred By: Confirmed By:BE KARIMI MD
== END 2017-12-30 19:38 | disposition home or self-care (01) ==
LOC: JER 16:51
PROC: 3E033NZ Introduction of Analgesics, Hypnotics, Sedatives into Peripheral Vein, Percutaneous Approach (ICD-10-PCS; principal; 2017-12-30)
PROC: 3E033GC Introduction of Other Therapeutic Substance into Peripheral Vein, Percutaneous Approach (ICD-10-PCS; 2017-12-30)
DX: O90.89 Other complications of the puerperium, not elsewhere classified (principal); G51.0 Bell's palsy; O16.5 Unspecified maternal hypertension, complicating the puerperium
CPT/HCPCS: 36415; 70450-TC; 80053; 81003; 81015; 82550; 84484; 84703; 85025; 85610; 86618; 87086; 93005; 93010; 96374; 96375; 99285-25; J0131; J7030